=== PATIENT | male | born 1945 | race Caucasian/White ===

== ENCOUNTER → 2016-08-25 | Outpatient (CLI) | payer OTHER, MEDICARE | LOC: BHFA 15:00 | PROVIDERS: ATTEND Internal Medicine Cardiovascular Disease | DX: I48.91 Unspecified atrial fibrillation (principal) ==

== ENCOUNTER 2016-10-04 06:30 | Day surgery (SDC) | payer OTHER, MEDICARE ==
[2016-10-04] MEDS ORDERED: fentaNYL 100 MCG/2 ML INJ IVP ONE (06:37)
[2016-10-04] MEDS ORDERED: PROPOFOL 200 MG/20 ML VIAL IVP ONE (06:37)
[2016-10-04] MEDS ORDERED: BENZOCAINE UNIT DOSE SPRAY HURRICAINE MM ONE (06:37)
[2016-10-04] MEDS ORDERED: MIDAZOLAM 2 MG/2 ML VIAL IVP ONE (06:37)
[2016-10-04] MEDS ORDERED: NS 500 ML IV ONE (06:37)
--- NOTE | 2016-10-04 06:51 | CPEKG ---
Heart Rate: 79 RR Interval: 759 QRSD Interval: 84 QT Interval: 360 QTC Interval: 413 QRS [place]: -18 T Wave [place]: 1 EKG Severity - ABNORMAL ECG - EKG Impression: ATRIAL FIBRILLATION, V-RATE 65-97 EKG Impression: VENTRICULAR PREMATURE COMPLEX EKG Impression: BORDERLINE LEFT AXIS DEVIATION EKG Impression: ATRIAL FIB IS NEW IN COMPARISON TO PRIOR ECG Electronically Signed By: Manny Gonzalez 04-Oct-2016 06:58:42
[2016-10-04 07:23] LABS: INR 1.1 (0.83-1.16); PROTIME(PATIENT) 14.1 SEC (12.0-15.0)
[2016-10-04 07:24] LABS: APTT 37.1 SEC (23.0-38.0)
[2016-10-04] MEDS ORDERED: ATROPINE SULFATE 1 MG/10 ML SYR ONE (07:26)
[2016-10-04 07:31] LABS: ANION GAP 8 mEq/L (8-16); CARBON DIOXIDE 25 mEq/l (22-31); CHLORIDE 108 mEq/L (97-110); CREATININE 0.9 mg/dL (0.7-1.3); GLOMERULAR FILTRATION RATE > 60; GLUCOSE 112 mg/dL (70-100); MAGNESIUM 2.2 mg/dL (1.6-2.3); POTASSIUM 4.5 mEq/L (3.5-5.2); SODIUM 141 mEq/L (134-144)
[2016-10-04] MEDS ORDERED: PROPOFOL 200 MG/20 ML VIAL ONE (07:58)
--- NOTE | 2016-10-04 08:48 | CPEKG ---
Heart Rate: 46 RR Interval: 1304 P-R Interval: 224 QRSD Interval: 90 QT Interval: 440 QTC Interval: 385 P [place]: 54 QRS [place]: -16 T Wave [place]: -3 EKG Severity - ABNORMAL ECG - EKG Impression: SINUS BRADYCARDIA EKG Impression: BORDERLINE LEFT AXIS DEVIATION EKG Impression: BORDERLINE R WAVE PROGRESSION, ANTERIOR LEADS EKG Impression: BORDERLINE T ABNORMALITIES, INFERIOR LEADS EKG Impression: SINUS BRADYCARDIA HAS REPLACED ATRIAL FIBRILLATION Electronically Signed By: Manny Gonzalez 05-Oct-2016 09:07:01
--- NOTE | 2016-10-04 08:59 | PDTEE1 ---
LAMAR Cardioversion Procedure Procedure: Electrical Cardioversion, Transesophageal Echo Indications: Atrial Fibrillation Consent: Signed and in Chart Anticoagulation: Other (Pradaxa) Procedural Details: After consent was obtained, the patient was placed in the left lateral position , and local sedation was provided. Anesthesia with moderate sedation achieved. LAMAR probe was placed without difficulty and standard images were obtained. Patient was in atrial fibrillation with rates of 75-85 bpm Prelim report low normal LVEF (50%) with grossly normal wall motion. Moderate biatrial dilation was noted. Mild to moderate mitral regurgitation was noted. Trileaflet aortic valve with physiologic insufficiency. Grossly normal pulmonic valve. Trace/mild tricuspid regurgitation. No thrombus noted to the JEFF. No appreciable "smoke" was noted. Recommendations to proceed with cardioversion single, synchronized shock (200 J) with conversion from atrial fibrillation (75- 85 bpm) to normal sinus/sinus bradycardia (45-50 bpm). No complications Spoke with follow up in 1 week Synchronized cardioversion attempt #1: 200J Results: Normal sinus rhythm Conclusions: Successful LAMAR Cardioversion Conclusion Comment: Follow up with cardiology in one week. Patient Problems: Problems Problem Status Onset Arthritis of knee, left Acute
[2016-10-04 12:18] VITALS: BP 124/82; RESP 17; O2SAT 92
== END 2016-10-04 10:00 | disposition home or self-care (01) ==
LOC: FCATH 06:30
PROVIDERS: ATTEND Internal Medicine Cardiovascular Disease
PROC: 5A2204Z Restoration of Cardiac Rhythm, Single (ICD-10-PCS; principal; 2016-10-04)
PROC: B246ZZ4 Ultrasonography of Right and Left Heart, Transesophageal (ICD-10-PCS; principal; 2016-10-04)
DX: I48.91 Unspecified atrial fibrillation (principal); I10 Essential (primary) hypertension; I25.10 Atherosclerotic heart disease of native coronary artery without angina pectoris
CPT/HCPCS: J0461; J2704

== ENCOUNTER → 2016-10-11 | Outpatient (CLI) | payer OTHER, MEDICARE | LOC: BHCLAF 10:15 | PROVIDERS: ATTEND Internal Medicine Cardiovascular Disease | DX: I48.91 Unspecified atrial fibrillation (principal) | CPT/HCPCS: 93005-PO ==

== ENCOUNTER → 2016-10-18 | Outpatient (CLI) | payer OTHER, MEDICARE | LOC: BHCLAF 10:45 | PROVIDERS: ATTEND Internal Medicine Cardiovascular Disease | DX: I48.91 Unspecified atrial fibrillation (principal) | CPT/HCPCS: 93306-PO ==

== ENCOUNTER → 2016-11-05 | Outpatient (CLI) | payer OTHER, MEDICARE | LOC: BHFA 13:30 | PROVIDERS: ATTEND Internal Medicine Cardiovascular Disease | DX: I48.91 Unspecified atrial fibrillation (principal); I25.10 Atherosclerotic heart disease of native coronary artery without angina pectoris ==

== ENCOUNTER → 2017-07-01 | Outpatient (CLI) | payer OTHER, MEDICARE ==
[~2017-07-01] MED LIST: DEPO METHYLPREDNISOLONE 40 MG/ML SDV ONE; IOPAMIDOL (ISOVUE 370) 100 ML BTL IV ONE; LIDOCAINE 1% 300 MG/30 ML SDV ONE; ROPIVACAINE HCL 150 MG/30 ML INJ ONE
== END ==
LOC: FIMAGING 10:22
PROVIDERS: ATTEND Orthopaedic Surgery
PROC: 3E0U33Z Introduction of Anti-inflammatory into Joints, Percutaneous Approach (ICD-10-PCS; principal; 2017-07-01)
DX: M25.551 Pain in right hip (principal); Z96.641 Presence of right artificial hip joint
CPT/HCPCS: 20610; J1030; J2795; Q9967

== ENCOUNTER 2017-09-30 10:11 | Day surgery (SDC) | payer OTHER, MEDICARE ==
[2017-09-30] MEDS ORDERED: BENZOCAINE UNIT DOSE SPRAY HURRICAINE MM ONE (10:15)
[2017-09-30] MEDS ORDERED: NS 500 ML IV ONE (10:15)
[2017-09-30] MEDS ORDERED: fentaNYL 100 MCG/2 ML INJ IVP ONE (10:15)
[2017-09-30] MEDS ORDERED: MIDAZOLAM 2 MG/2 ML VIAL IVP ONE (10:15)
[2017-09-30] MEDS ORDERED: ATROPINE SULFATE 1 MG/10 ML SYR IVP ONE (10:15)
--- NOTE | 2017-09-30 10:30 | CPEKG ---
Heart Rate: 106 RR Interval: 566 QRSD Interval: 84 QT Interval: 332 QTC Interval: 441 QRS [place]: -10 T Wave [place]: 35 EKG Severity - ABNORMAL ECG - EKG Impression: ATRIAL FIBRILLATION, V-RATE 61-143 EKG Impression: LOW VOLTAGE THROUGHOUT Electronically Signed By: Joaquín Parmar 30-Sep-2017 14:14:56
[2017-09-30 10:55] LABS: INR 1.12 (0.83-1.16); PROTIME(PATIENT) 14.6 SEC (12.0-15.0)
--- NOTE | 2017-09-30 11:11 | PDANEPAE ---
ANE History of Present Illness a fib ANE Past Medical History - Cardiovascular History Hx Hypertension: No Hx Arrhythmias: Yes Hx Coronary Artery / Peripheral Vascular Disease: No Hx CHF / Valvular Disease: No Cardiovascular History Comment: ATRIAL FIBRILLATION 2010. CARDIOVERSION X 2 - Pulmonary History Hx COPD: No Hx Asthma/Reactive Airway Disease: Yes Hx Recent Upper Respiratory Infection: No Hx Oxygen in Use at Home: No Hx Sleep Apnea: Yes Pulmonary History Comment: URI JUNE 2013 - Neurologic History Hx Cerebrovascular Accident: No Hx Seizures: No Hx Dementia: No - Endocrine History Hx Diabetes: No - Renal History Hx Renal Disorders: Yes Renal History Comment: BPH. 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 ESOPHAGEAL DILATION 2008 - Other Health History Other Health History: ARTHRITIS. SEASONAL ALLERGIES. GLAUCOMA - Chronic Pain History Chronic Pain: Yes (RIGHT HIP) - Surgical History Prior Surgeries: LOOP MONITOR PLACEMENT NOVEMBER 2015. ANGIOPLASTY, CARDIOVERSION & SVT ABLATION 2014. LEFT TOTAL KNEE 2013. RT TOTAL KNEE 2006. LANA REMVL CATARACT. TURP 1994. RT EYE STRABISMUS. TONSILLECTOMY. RT KNEE SCOPE X 2. LT KNEE SCOPE. LANA HEEL RELEASE OF FASCIA ANE Review of Systems Review of Systems: ANE Patient History - Allergies Allergies/Adverse Reactions: No Known Allergies Allergy (Unverified 10/18/13 10:41) - Home Medications Home Medications: Doxazosin Mesylate [Cardura 4 MG (*)] 4 mg PO HS 10/18/13 [Last Taken 09/29/17 23:30] Pantoprazole Sodium [Protonix 40mg (*)] 40 mg PO BID 10/18/13 [Last Taken 10:00] Primidone [Primidone 250mg (*)] 250 mg PO HS 10/18/13 [Last Taken 09/29/17 23:30 ] Solifenacin Succinate [Vesicare 5 MG (*)] 5 mg PO HS 10/18/13 [Last Taken 23:30] Dabigatran Etexilate Mesyl [Pradaxa 150 MG (*)] 150 mg PO BID 08/07/14 [Last Taken 09/30/17 08:00] Brimonidine/Timolol [Combigan (*)] 1 drops EACHEYE BID 04/29/16 [Last Taken 12/12 08:00] Cholecalciferol Vit D3 [Vitamin D3 (*)] 1,000 units PO DAILY 04/29/16 [Last Taken 09/29/17 10:00] Cyanocobalamin [Vitamin B12 (*)] 1,000 mcg PO DAILY 04/29/16 [Last Taken 10:00] Glucosamine/Chondroitin [Glucosamine/Chondroitin (*)] 2 each PO DAILY 04/29/16 [ Last Taken 09/29/17 10:00] Herbals/Supplements -Info Only 1 ea PO DAILY 04/29/16 [Last Taken 09/29/17 10:00 ] Multivitamins [Multivitamin (*)] 1 each PO DAILY 04/29/16 [Last Taken 09/29/17 10:00] [place]-3 Fatty Acids [Fish Oil 1000 mg (*)] 1,000 mg PO DAILY 04/29/16 [Last Taken 09/29/17 10:00] Primidone [Mysoline] 50 mg PO HS 04/29/16 [Last Taken 09/29/17 10:00] Aspirin 81 mg PO DAILY 10/04/16 [Last Taken 09/29/17 10:00] CO Q-10 1 tab PO DAILY 10/04/16 [Last Taken 09/29/17 10:00] Calcium 500 mg PO DAILY 10/04/16 [Last Taken 09/29/17 10:00] Lutein 1 tab PO HS 10/04/16 [Last Taken 09/29/17 10:00] Tylenol PM (*) 2 mg PO HS PRN 10/04/16 [Last Taken 09/29/17 23:30] - Smoking Hx Smoking Status: Never smoked ANE Labs/Vital Signs - Labs Result Diagrams: 09/30/17 10:40 - Vital Signs Height: 183 cm Weight: 106.6 kg ANE Physical Exam - Airway Neck exam: FROM Mallampati Score: Class 2 Mouth exam: normal dental/mouth exam - Pulmonary Pulmonary: no respiratory distress - Cardiovascular Cardiovascular: other - ASA Status ASA Status: III ANE Anesthesia Plan Total IV Anesthesia: Yes
[2017-09-30] MEDS ORDERED: PROPOFOL 200 MG/20 ML VIAL ONE (11:27)
--- NOTE | 2017-09-30 11:30 | PDGENHP ---
History & Physical Chief Complaint: AF History of Present Illness: Patient with PAF and hx ablation in 2013. Has had 2 DCCV since ablation. One week of presyncope and palpitations. LINQ interrogation confirmed AF. He reports compliance with Pradaxa for 5 years with no missed doses in the past 4 weeks. Pertinent Past, Social, Family History: Reviewed Relevant Physical Exam: irreg irreg. No murmurs. No S3 or rub. Lungs CTAB. No edema Cardiorespiratory Assessment: stable
--- NOTE | 2017-09-30 11:38 | PDTEE1 ---
LAMAR Cardioversion Procedure Procedure: electrical cardioversion Indications: atrial fibrillation Anticoagulation: other (Pradaxa ) Procedural Details: Sedation was provided by Dr. Betts. Pads were placed in anterior-posterior position. No LAMAR probe was performed as the patient has been on uninterrupted Pradaxa therapy for years. Synchronized cardioversion attempt #1: 200J Results: normal sinus rhythm Conclusions: successful cardioversion Patient Problems: Problems Problem Status Onset Arthritis of knee, left Acute
--- NOTE | 2017-09-30 11:42 | POSTANESTH ---
Post Anesthetic Evaluation Cardiovascular Status: Normal, Stable Respiratory Status: Normal, Stable Level of Consciousness/Mental Status: Can Participate in Eval Pain Control: Adequate, Prn Tx Ordered Nausea/Vomiting Control: Adequate, Prn Tx Ordered Complications Possibly Related to Anesthesia: None Noted
--- NOTE | 2017-09-30 11:43 | CPEKG ---
Heart Rate: 56 RR Interval: 1071 P-R Interval: 204 QRSD Interval: 84 QT Interval: 396 QTC Interval: 383 P [place]: 45 QRS [place]: -24 T Wave [place]: 6 EKG Severity - OTHERWISE NORMAL ECG - EKG Impression: SINUS RHYTHM EKG Impression: BORDERLINE LEFT AXIS DEVIATION Electronically Signed By: Joaquín Parmar 30-Sep-2017 14:15:07
== END 2017-09-30 13:07 | disposition home or self-care (01) ==
LOC: FCATH 10:11
PROVIDERS: ATTEND Internal Medicine Cardiovascular Disease
PROC: 5A2204Z Restoration of Cardiac Rhythm, Single (ICD-10-PCS; principal; 2017-09-30)
DX: I48.91 Unspecified atrial fibrillation (principal); N40.0 Benign prostatic hyperplasia without lower urinary tract symptoms; G25.0 Essential tremor; K21.9 Gastro-esophageal reflux disease without esophagitis; H40.9 Unspecified glaucoma; Z79.01 Long term (current) use of anticoagulants; Z96.653 Presence of artificial knee joint, bilateral
CPT/HCPCS: J2704

== ENCOUNTER → 2017-10-17 | Outpatient (CLI) | payer OTHER, MEDICARE ==
[~2017-10-17] MED LIST changes: -DEPO METHYLPREDNISOLONE 40 MG/ML SDV ONE; -IOPAMIDOL (ISOVUE 370) 100 ML BTL IV ONE; -ROPIVACAINE HCL 150 MG/30 ML INJ ONE
== END ==
LOC: FIMAGING 08:14
PROVIDERS: ATTEND Orthopaedic Surgery
PROC: 0K9N3ZZ Drainage of Right Hip Muscle, Percutaneous Approach (ICD-10-PCS; principal; 2017-10-17)
DX: M67.451 Ganglion, right hip (principal)

== ENCOUNTER → 2018-02-10 | Outpatient (CLI) | payer OTHER, MEDICARE ==
[~2018-02-10] MED LIST changes: +IOPAMIDOL (ISOVUE 370) 100 ML BTL IV ONE
== END ==
LOC: FIMAGING 10:15
PROVIDERS: ATTEND Physical Medicine & Rehabilitation
PROC: 3E0U3BZ Introduction of Anesthetic Agent into Joints, Percutaneous Approach (ICD-10-PCS; principal; 2018-02-10)
DX: Z09 Encounter for follow-up examination after completed treatment for conditions other than malignant neoplasm (principal); Z96.649 Presence of unspecified artificial hip joint; M24.551 Contracture, right hip
CPT/HCPCS: 20610; 73525; 73700; Q9967

== ENCOUNTER 2018-04-04 07:47 | Inpatient (IN) | payer OTHER, MEDICARE ==
--- NOTE | 2018-04-04 05:26 | GHP ---
CURRENT COMPLAINT: Right hip pain. HISTORY OF PRESENT ILLNESS: Mr. Ortiz is a 72-year-old male, who has previously undergone a right t otal hip arthroplasty, who developed an anterior ganglion cyst associated with the capsule of the hip that is irritating his iliopsoas. He would like it removed. ALLERGIES: He lists no drug allergies. CURRENT MEDICATIONS: Include atorvastatin, doxazosin, Enablex, flecainide, nitrofurantoin, pantopraz ole, Pradaxa, Prevnar, Primidone, timolol. PRIOR MEDICAL PROBLEMS: Include high cholesterol and reflux. PRIOR SURGERIES: Include a total hip arthroplasty, total knee arthroplasty x2, cataracts, TURP, tong ue surgery, bilateral knee scopes, and a left heel release. SOCIAL HISTORY: He has never been a smoker. He is a social drinker. PHYSICAL EXAMINATION: EYES: Pupils equal, round, and reactive to light. CHEST: Clear to auscultat ion. HEART: Regular rate and rhythm. ABDOMEN: Soft and nontender. There is tenderness on the ant erior to flexion and adduction across the midline. MRI exams revealed a cyst coming off the anterior portion of the capsule just beneath his iliopsoas. He would like this removed. ASSESSMENT AND PLAN: Patient is status post right hip ganglion cyst. Plan is to take him to the ope rating room, do an open cyst excision with capsular excision. /[id number]/MODL
[2018-04-04] MEDS ORDERED: TRANEXAMIC ACID 3,000 MG in NS (SYRINGE) 50 ML IRR ONE (07:57)
[2018-04-04] MEDS ORDERED: ROPIVACAINE 0.2% 80 MG, EPINEPHrine 0.2 MG, KETOROLAC TROMETHAMINE 30 MG, morphINE 10 M... IU ONE (07:57)
[2018-04-04] MEDS ORDERED: PREGABALIN 150 MG CAP PO ONE (07:57)
[2018-04-04] MEDS ORDERED: ACETAMINOPHEN 500 MG TAB PO ONE (07:57)
[2018-04-04] MEDS ORDERED: ceFAZolin 2 GM/DEXTROSE 100 ML IV ONE (07:57)
[2018-04-04] MEDS ORDERED: LR 1,000 ML IV ONE (07:58)
[2018-04-04] MEDS ORDERED: POLYMYXIN B SULFATE 500,000 UNIT/10 ML SYR IRR ONE ×2 (08:00→08:09)
[2018-04-04] MEDS ORDERED: BUPIVACAINE/EPI 0.5% 30 ML SDV ONE ×2 (08:00→08:09)
[2018-04-04] MEDS ORDERED: THROMBIN (BOVINE) 5,000 UNIT VIAL TP ONE (08:00)
[2018-04-04] MEDS ORDERED: CALCIUM CHLORIDE 1 GM/10 ML INJ ONE (08:00)
[2018-04-04] MEDS ORDERED: BACITRACIN 50,000 UNITS/10 ML SYR IRR ONE ×2 (08:00→08:08)
--- NOTE | 2018-04-04 09:10 | PDHPUP ---
History & Physical Update H&P update statement: This history and physical update is based on an assessment of the patient which was completed after admission or registration (within 24 hours), but prior to the surgery/procedure. H&P update: H&P reviewed & patient examined, no change in patient's condition since H&P completed
[2018-04-04] MEDS ORDERED: PROPOFOL/EMULSION 500 MG/50 ML BOTTLE IV ONE (09:45)
[2018-04-04] MEDS ORDERED: fentaNYL 100 MCG/2 ML INJ ONE (09:45)
[2018-04-04] MEDS ORDERED: fentaNYL 100 MCG/2 ML INJ IVP PRN (10:13)
[2018-04-04] MEDS ORDERED: NALOXONE HCL 0.4 MG/ML INJ IVP PRN (10:13)
[2018-04-04] MEDS ORDERED: LR 500 ML IV PRN (10:13)
[2018-04-04] MEDS ORDERED: ONDANSETRON 4 MG/2 ML VIAL IVP PRN ×2 (10:13→11:17)
[2018-04-04] MEDS ORDERED: DEXAMETHASONE 4 MG/ML VIAL IVP PRN (10:13)
[2018-04-04] MEDS ORDERED: ALBUTEROL 3 ML DEYVIAL IH PRN (10:13)
--- NOTE | 2018-04-04 10:13 | PDANEPAE ---
ANE Past Medical History - Cardiovascular History Hx Hypertension: No Hx Arrhythmias: Yes Hx Coronary Artery / Peripheral Vascular Disease: Yes Hx CHF / Valvular Disease: No Cardiovascular History Comment: ATRIAL FIBRILLATION 2011. CARDIOVERSION X 2 - 2017. PT HAS LINQ RECORDER IMPLANTED - Pulmonary History Hx COPD: No Hx Asthma/Reactive Airway Disease: No Hx Recent Upper Respiratory Infection: No Hx Oxygen in Use at Home: No Hx Sleep Apnea: No Sleep Apnea Screening Result - Last Documented: Positive Pulmonary History Comment: URI JUNE 2013 - Neurologic History Hx Cerebrovascular Accident: No Hx Seizures: No Hx Dementia: No - Endocrine History Hx Diabetes: No - Renal History Hx Renal Disorders: Yes Renal History Comment: BPH. 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 ESOPHAGEAL DILATION 2008 - Other Health History Other Health History: ARTHRITIS. SEASONAL ALLERGIES. GLAUCOMA - Chronic Pain History Chronic Pain: Yes (RIGHT HIP) - Surgical History Prior Surgeries: 11/2017 CARDIOVERSION. 09/2017 CARDIOVERSION. LOOP MONITOR PLACEMENT NOVEMBER 2015. ANGIOPLASTY, CARDIOVERSION & SVT ABLATION 2014. LEFT TOTAL KNEE 2013. RT TOTAL KNEE 2006. LANA REMVL CATARACT. TURP 1994. RT EYE STRABISMUS. TONSILLECTOMY. RT KNEE SCOPE X 2. LT KNEE SCOPE. LANA HEEL RELEASE OF FASCIA ANE Review of Systems Review of Systems: - Exercise capacity METS (RN): 4 METS ANE Patient History - Allergies Allergies/Adverse Reactions: No Known Allergies Allergy (Unverified 10/18/13 10:41) - Home Medications Home Medications: Doxazosin Mesylate [Cardura 4 MG (*)] 4 mg PO HS 10/18/13 [Last Taken 04/03/18] Pantoprazole Sodium [Protonix 40mg (*)] 40 mg PO DAILY 10/18/13 [Last Taken 03/14 06:00] Primidone [Primidone 250mg (*)] 300 mg PO HS 10/18/13 [Last Taken 04/03/18] Solifenacin Succinate [Vesicare 5 MG (*)] 5 mg PO HS 10/18/13 [Last Taken ] Dabigatran Etexilate Mesyl [Pradaxa 150 MG (*)] 150 mg PO BID 08/07/14 [Last Taken 04/04/18] Brimonidine/Timolol [Combigan (*)] 1 drops EACHEYE BID 04/29/16 [Last Taken 03/14 06:00] Cyanocobalamin [Vitamin B12 (*)] 1,000 mcg PO DAILY 04/29/16 [Last Taken ] Multivitamins [Multivitamin (*)] 1 each PO DAILY 04/29/16 [Last Taken 04/03/18] Aspirin [Aspirin 81mg (*)] 81 mg PO DAILY #0 10/04/16 [Last Taken 04/03/18] Calcium Carbonate [Oyster Shell Calcium 500 mg (*)] 500 mg PO DAILY #0 10/04/16 [Last Taken 04/03/18] Atorvastatin Calcium [Lipitor 40 mg (*)] 40 mg PO HS 04/03/18 [Last Taken ] - NPO status NPO Since - Liquids (Date): 03/21/18 NPO Since - Liquids (Time): 19:30 NPO Since - Solids (Date): 04/03/18 NPO Since - Solids (Time): 19:30 - Smoking Hx Smoking Status: Never smoked ANE Labs/Vital Signs - Vital Signs Blood Pressure: 146/75 Heart Rate: 47 Respiratory Rate: 18 O2 Sat (%): 93 Height: 182.88 cm Weight: 107.955 kg ANE Physical Exam - Airway Neck exam: FROM Mallampati Score: Class 2 Mouth exam: normal dental/mouth exam - Pulmonary Pulmonary: no respiratory distress, no rales or rhonchi, clear to auscultation - Cardiovascular Cardiovascular: regular rate and rhythym, no murmur, rub, or gallop - ASA Status ASA Status: III ANE Anesthesia Plan Anesthesia Plan: general endotracheal anesthesia
[2018-04-04] MEDS ORDERED: ePHEDrine SULFATE 25 MG/5 ML SYR ONE (10:33)
[2018-04-04] MEDS ORDERED: ONDANSETRON 4 MG/2 ML VIAL ONE (10:33)
[2018-04-04] MEDS ORDERED: SUGAMMADEX SODIUM 200 MG/2 ML VIAL IVP ONE (10:33)
[2018-04-04] MEDS ORDERED: ROCURONIUM 50 MG/5 ML VIAL ONE (10:33)
--- NOTE | 2018-04-04 11:16 | POSTOPPROG ---
Post Op Note Date of Operation: 04/04/18 Surgeon: Peggy Burns Member Of Congress: coltrain Anesthesia: GET(General Endotracheal) Pre-op Diagnosis: r hip cyst Procedure: r hip cyst and capsule excision Inf/Abcess present in the surg proc area at time of surgery?: No Depth: Deep Incisional (Fascial) EBL: 100-500
[2018-04-04] MEDS ORDERED: BISACODYL 10 MG SUPP PR PRN (11:17)
[2018-04-04] MEDS ORDERED: PROMETHAZINE HCL 25 MG SUPPR PR PRN (11:17)
[2018-04-04] MEDS ORDERED: ONDANSETRON DISINTEGRATING 4 MG TAB PO PRN (11:17)
[2018-04-04] MEDS ORDERED: METOCLOPRAMIDE 10 MG/2 ML VIAL IVP PRN (11:17)
[2018-04-04] MEDS ORDERED: LACTULOSE 20 GM/30 ML UDCUP PO PRN (11:17)
[2018-04-04] MEDS ORDERED: TAPENTADOL HCL 50 MG TAB PO PRN (11:17)
[2018-04-04] MEDS ORDERED: TEMAZEPAM 15 MG CAP PO PRN (11:17)
[2018-04-04] MEDS ORDERED: POLYETHYLENE GLYCOL 3350 17 GM PKT PO PRN (11:17)
[2018-04-04] MEDS ORDERED: PROMETHAZINE HCL 25 MG/ML INJ IVP PRN (11:17)
[2018-04-04] MEDS ORDERED: DIPHENOXYLATE/ATROPINE LOMOTIL 1 TAB PO PRN (11:17)
[2018-04-04] MEDS ORDERED: MAGNESIUM HYDROXIDE 30 ML UDCUP PO PRN (11:17)
[2018-04-04] MEDS ORDERED: diphenhydrAMINE 25 MG CAP PO PRN (11:17)
[2018-04-04] MEDS ORDERED: oxyCODONE IR 5 MG TAB PO PRN (11:17)
[2018-04-04] MEDS ORDERED: CYCLOBENZAPRINE 10 MG TAB PO PRN (11:17)
[2018-04-04] MEDS ORDERED: LR 1,000 ML IV SCH (11:30)
--- NOTE | 2018-04-04 11:44 | POSTANESTH ---
Post Anesthetic Evaluation Cardiovascular Status: Normal, Stable, Similar to Pre-Op Cond Respiratory Status: Normal, Stable, Similar to Pre-op Cond. Level of Consciousness/Mental Status: Can Participate in Eval, Alert and Oriented Pain Control: Adequate, Prn Tx Ordered Nausea/Vomiting Control: Adequate, Prn Tx Ordered Complications Possibly Related to Anesthesia: None Noted
--- NOTE | 2018-04-04 12:34 | PDMN ---
Medical Necessity Medical necessity: [facility] IP only surgery; cpt 94780 R Hip Cyst Excision.
--- NOTE | 2018-04-04 12:53 | GOP ---
DATE OF OPERATION: 04/04/2018 SURGEON: Peggy Burns MD RECREATION WORKER: SALENA Castillo LSA, whose presence was medically necessary. ANESTHESIA: Endotracheal intubation. PREOPERATIVE DIAGNOSIS: Right anterior hip cyst. POSTOPERATIVE DIAGNOSIS: Right anterior hip cyst. PROCEDURE PERFORMED: Right hip cyst anterior capsular excision. FINDINGS: INDICATIONS: This is a 72-year-old male, who had previously undergone a right total hip arthroplasty several months ago. He had developed pain along the iliopsoas. Radiographic studies revealed a cys t on the anterior portion of the hip, rubbing up against the deep portion of the iliopsoas. He wishe s to have surgery in order to resolve the problem. DESCRIPTION OF PROCEDURE: The patient was brought to the operating room after the right side had bee n identified as the correct side by the patient, nurse, and physician. Once in the operating room, yuri lam was placed under general anesthesia using endotracheal intubation. Once asleep, he was placed on a traction table with both legs placed in appropriate leg holders and the arch table locked into place . The right hip and flank were sterilely prepped and draped in the usual fashion using so lution. Once prepped and draped, a sharp incision was made through the old scar for his total hip re placement. Sharp dissection was carried down through the skin and subcutaneous layers, with bleeding controlled using electrocautery. The fascia overlying the TFL was incised in line with its fibers, with the muscle belly retracted laterally. Deeper dissection was carried down onto the hip capsule. Dissection was carried out medially. A retractor was able to be placed in the area of the cyst, but , as soon as the retractor was placed, the cyst burst revealing synovial fluid coming from the area a round the cyst. Therefore, Bovie was used to remove the anterior portion of the capsule around the a jr of the cyst and extending to the intertrochanteric line in order to leave a wide opening area, in order to decrease the chance of any more cyst formation. There was noted to be some bony spur forma tion on the anterior portion of the hip, which was also debrided, in case this may have been causing any problems at all. The wound was then thoroughly irrigated with antibiotic solution. A joint cock tail was injected around the posterior capsule, and the periosteum around the femur and acetabulum, a nd tranexamic acid was irrigated through the wound. The wound was then closed in layers to include # 2 PDO suture for the TFL fascia, 0 Vicryl and 2-0 Vicryl sutures for the subcutaneous layers, and 3-0 V-Loc suture in a running subcuticular stitch for the skin. The wound was then dressed with Steri-S trips, Xeroform, 4 x 4, and Tegaderm. The patient was then completely undraped in the operating room and had both legs taken out of their leg holders. Perineal post was removed. He was woken up, extu bated, transferred onto a bed, and sent to the recovery room in good condition. /[id number]/MODL
[2018-04-04] MEDS: KETOROLAC 15 MG/1 ML SDV IVP SCH ×3 (14:12→23:16)
[2018-04-04] MEDS: ACETAMINOPHEN 325 MG TAB PO SCH ×3 (14:12→23:16)
[2018-04-04] MEDS: traMADol 50 MG TAB PO SCH ×3 (14:13→23:16)
[2018-04-04] MEDS: ceFAZolin 2 GM/DEXTROSE 100 ML IV SCH ×2 (16:46→23:17)
[2018-04-04] MEDS: SENNOSIDES/DOCUSATE SODIUM TAB PO SCH (20:02)
[2018-04-04] MEDS: DABIGATRAN ETEXILATE MESYL 150 MG CAP PO SCH (20:02)
[2018-04-04] MEDS: FAMOTIDINE 20 MG TAB PO SCH (20:02)
[2018-04-04] MEDS: BRIMONIDINE/TIMOLOL 5 ML OPHT.BTL EACHEYE SCH (20:02)
[2018-04-04] MEDS ORDERED: DOXAZOSIN MESYLATE 4 MG TAB PO SCH (21:00)
[2018-04-04] MEDS ORDERED: SOLIFENACIN SUCCINATE 5 MG TAB PO SCH (21:00)
[2018-04-04] MEDS ORDERED: PRIMIDONE 250 MG TAB PO SCH (21:00)
[2018-04-04] MEDS ORDERED: PRIMIDONE 50 MG TAB PO SCH (21:00)
[2018-04-04] MEDS ORDERED: ATORVASTATIN CALCIUM 40 MG TAB PO SCH (21:00)
[2018-04-05] MEDS: traMADol 50 MG TAB PO SCH ×2 (05:44→12:30)
[2018-04-05] MEDS: KETOROLAC 15 MG/1 ML SDV IVP SCH (05:45)
[2018-04-05] MEDS: ACETAMINOPHEN 325 MG TAB PO SCH ×2 (05:45→12:30)
[2018-04-05] MEDS ORDERED: PANTOPRAZOLE SODIUM 40 MG TAB PO SCH (09:00)
[2018-04-05] MEDS: DABIGATRAN ETEXILATE MESYL 150 MG CAP PO SCH (09:18)
[2018-04-05] MEDS: SENNOSIDES/DOCUSATE SODIUM TAB PO SCH (09:18)
[2018-04-05] MEDS: FAMOTIDINE 20 MG TAB PO SCH (09:19)
[2018-04-05] MEDS: BRIMONIDINE/TIMOLOL 5 ML OPHT.BTL EACHEYE SCH (09:21)
[2018-04-05 12:51] VITALS: BP 115/84
--- NOTE | 2018-04-05 13:47 | SOAPPROG ---
SOAP Progress Note Assessment/Plan: Assessment: Anderson is POD#1 s/p right hip cyst decompression. He reports he is doing well. PE: Dressing is clean and dry [place] Intact RLE Calf is soft to compression without pain Plan: Discharge home today Oxycodone for pain Follow up in 10-14 days for repeat evaluation and wound check 04/05/18 13:45 Objective: Vital Signs Temp Pulse Resp BP Pulse Ox 36.7 C 55 L 16 115/84 H 92 04/05/18 12:50 04/05/18 12:50 04/05/18 12:50 04/05/18 12:50 04/05/18 12:50 Laboratory Results 04/05/18 04:17 04/04/18 04/05/18 04/06/18 05:59 05:59 05:59 Intake Total 1950 Output Total 300 Balance 1650 ICD10 Worksheet Patient Problems: Problems Problem Status Onset Arthritis of knee, left Acute
--- NOTE | 2018-04-05 14:22 | ASMTLACE ---
[place] Length of stay for Answers: 2 days current admission Acuity / Level of Answers: Yes Care: Did the patient have an inpatient admission? Comorbidities - select Answers: Coronary Artery Disease all that apply Opioid dependence / Chronic pain Other Notes: AFib; BPH; Essential tremor # of Emergency department Answers: 0 visits in the last 6 months Score: 12 Date Signed: 04/05/2018 02:22 PM Electronically Signed By:RONDA Singleton
--- NOTE | 2018-04-05 14:23 | ASMTCMCOM ---
CM Note CM Note Notes: Pt had planned surgery for ganglion cyst on hip, PT rec home. No CM d/c needs identified. Date Signed: 04/05/2018 02:22 PM Electronically Signed By:RONDA Singleton
== END 2018-04-05 14:11 | disposition home or self-care (01) | DRG 482 ==
LOC: F3N 07:47 → OBSVTOIN 11:19 → F3N 13:02
PROVIDERS: ADMIT Orthopaedic Surgery; ATTEND Orthopaedic Surgery
PROC: 0SB90ZZ Excision of Right Hip Joint, Open Approach (ICD-10-PCS; principal; 2018-04-04 09:30)
DX: M67.451 Ganglion, right hip (principal); Z96.641 Presence of right artificial hip joint; Z96.653 Presence of artificial knee joint, bilateral
CPT/HCPCS: 97161-GP; 97165-GO; G8978-GP-CI; G8979-GP-CI; G8980-GP-CI; G8987-GO-CI; G8988-GO-CI; G8989-GO-CI; J0171; J0690; J1885; J2270; J2405; J2704; J2795; J3010

== ENCOUNTER 2018-04-19 20:03 | Emergency (ER) | payer OTHER, MEDICARE ==
--- NOTE | 2018-04-19 20:19 | EDPHY ---
H & P Time Seen by Provider: 04/19/18 20:09 HPI/ROS: Chief complaint. Possible hip dislocation HPI. 72-year-old male presents to emergency department with right hip pain. Patient arrives by EM S. He received pain medication in route. Had a hip replacement 2 years ago. He has never had it dislocate. 2 weeks ago he had a ganglion cyst in the hip with surgery to remove bone spur and ganglion cyst. He review of the records show that the patient progressed quite well. He has been doing his exercises. Today he was also out raking leaves. Tonight he was sitting on the couch with his watching television and suddenly had right hip pain. While sitting and at rest he has no pain. When he tries to stand on it he says the pain is 10/10. There was no twist or fall but just sudden onset of right hip pain. He had tingling to his right foot. ROS 10 systems were reviewed and negative with the exception of the elements mentioned in the history of present illness Past Medical/Surgical History: Atrial fibrillation, dyslipidemia, GERD, BPH, right hip replacement Social History: , nonsmoker, no alcohol Smoking Status: Never smoked Physical Exam: General Appearance: Alert well-developed male mild distress vitals are stable Eyes: Pupils equal and round no pallor or injection. ENT, Mouth: Mucous membranes are moist. Respiratory: There are no retractions, lungs are clear to auscultation. Cardiovascular: Regular rate and rhythm. Gastrointestinal: Abdomen is soft and nontender, no masses, bowel sounds normal. Neurological: Awake and alert, sensory and motor exams grossly normal. Skin: Warm and dry, no rashes. Musculoskeletal: Neck is supple nontender. Extremities mild tenderness to palpation right hip. No obvious deformity. Distal motor vascular sensitivity intact. However painful flexion extension and AB duction. Psychiatric: Patient is oriented X 3, there is no agitation. Constitutional: Initial Vital Signs Temperature (C) 36.7 C 04/19/18 20:05 Heart Rate 63 04/19/18 20:05 Respiratory Rate 20 04/19/18 20:05 Blood Pressure 175/76 H 04/19/18 20:05 O2 Sat (%) 95 04/19/18 20:05 O2 Delivery Mode [Post Room Air Procedure 3rd] O2 Delivery Mode [Post Non-Rebreather Mask Procedure 2nd] O2 Delivery Mode [Procedural Non-Rebreather Mask 1st Post Procedure 1st] O2 Delivery Mode [.Immediate Non-Rebreather Mask Pre-Procedure] O2 Delivery Mode Room Air O2 (L/minute) [Post Procedure 12 2nd] O2 (L/minute) [Procedural 1st 12 Post Procedure 1st] O2 (L/minute) [.Immediate Pre- 12 Procedure] Allergies/Adverse Reactions: No Known Allergies Allergy (Unverified 04/19/18 20:19) Home Medications: Medication Instructions Recorded Doxazosin Mesylate [Cardura 4 MG 4 mg PO HS 10/18/13 (*)] Pantoprazole Sodium [Protonix 40mg 40 mg PO DAILY 10/18/13 (*)] Primidone [Primidone 250mg (*)] 300 mg PO HS 10/18/13 Solifenacin Succinate [Vesicare 5 5 mg PO HS 10/18/13 MG (*)] Dabigatran Etexilate Mesyl 150 mg PO BID 08/07/14 [Pradaxa 150 MG (*)] Brimonidine/Timolol [Combigan (*)] 1 drops EACHEYE BID 04/29/16 Cyanocobalamin [Vitamin B12 (*)] 1,000 mcg PO DAILY 04/29/16 Multivitamins [Multivitamin (*)] 1 each PO DAILY 04/29/16 Aspirin [Aspirin 81mg (*)] 81 mg PO DAILY #0 10/04/16 Calcium Carbonate [Oyster Shell 500 mg PO DAILY #0 10/04/16 Calcium 500 mg (*)] Atorvastatin Calcium [Lipitor 40 40 mg PO HS 04/03/18 mg (*)] Acetaminophen [Tylenol 325mg (*)] 650 mg PO Q6HRS tab 04/05/18 Co Q-10 04/19/18 Glucosamine 04/19/18 Medical Decision Making - Diagnostics Imaging Results: Imaging Impressions Hip X-Ray 04/19/18 20:10 Impression: Dislocation of the femoral component of the total right hip arthroplasty. Hip X-Ray 04/19/18 20:52 Impression: Post reduction image shows anatomic alignment of the total right hip arthroplasty. X-ray reviewed by me shows dislocation of the right hip prosthesis Post reduction hip x-ray shows reduction is obtained Procedures: Procedure: Conscious sedation. Indication: Hip reduction I perform sedation and procedure The patient is an appropriate candidate to tolerate procedural sedation. The patient's vital signs and mental status are appropriate. The risks, benefits and alternatives of the sedation were discussed with the patient. The patient is ASA classification 1. The patient' s Mallampati airway score was 1 and the patient did meet the 3-3-2 airway measurements. A time out was completed. The patient was sedated with propofol 70 mg IV, fentanyl 100 mcg IV. The patient was monitored with continuous pulse oximetry, vehicle monitor technician and end tidal CO2. There were no complications and no significant hypoxemia. I performed both the sedation and the procedure. The total time I spent at the bedside during the procedural sedation was 20 minutes. The patient was examined after the procedural sedation and has returned to their pre-sedation baseline with normal vital signs and a normal examination. Procedure: ED hip dislocation. After adequate sedation the patient's was flexed and upper traction was placed on the hip with downward traction placed on the pelvis. An palpable pop was felt. I was then able to range of motion the hip and at moved with out restriction. Post reduction distal motor vascular sensitivity was checked and is intact ED Course/Re-evaluation: Re-evaluation 9:55 p.m. Patient is stable. He is ambulatory to the bathroom without pain or symptoms The patient, his , and I discussed treatment plan including criteria for return and hip replacement precautions. I have asked them to call Dr. Flowers tomorrow morning. They expressed understanding and agreement Differential Diagnosis: I considered hip fracture, sprain, dislocation. Patient had surgery 2 weeks ago but the wound appears to be healed and there is no evidence for infection - Data Points Medications Given: Discontinued Medications Fentanyl (Sublimaze) 100 mcg IVP EDNOW ONE Stop: 04/19/18 20:32 Last Admin: 04/19/18 20:45 Dose: 100 mcg Oxycodone/Acetaminophen (Percocet 5/325mg Prepack#4) 1 btl TAKEHOME EDNOW ONE Stop: 04/19/18 22:13 Last Admin: 04/19/18 22:21 Dose: 1 btl Propofol (Diprivan) 200 mg IVP EDNOW ONE Stop: 04/19/18 20:32 Last Admin: 04/19/18 20:49 Dose: 70 mg Departure - Departure Disposition: Home, Routine, Self-Care Clinical Impression: Hip dislocation, right Qualifiers: Encounter type: initial encounter Qualified Code(s): S73.004A - Unspecified dislocation of right hip, initial encounter Condition: Good Instructions: Hip Dislocation (ED) Additional Instructions: Easy activity. Sleep with pillow between legs. Return tonight for further symptoms Follow-up with Dr. Burns tomorrow Referrals: Jono Brewer MD [Primary Care Provider] - As per Instructions Peggy Burns MD [Medical Doctor] - 1-2 days without fail
[2018-04-19] MEDS ORDERED: PROPOFOL 200 MG/20 ML VIAL IVP ONE (20:31)
[2018-04-19] MEDS ORDERED: fentaNYL 100 MCG/2 ML INJ IVP ONE (20:31)
[2018-04-19] MEDS ORDERED: fentaNYL 100 MCG/2 ML INJ ONE (20:32)
[2018-04-19] MEDS ORDERED: PROPOFOL 200 MG/20 ML VIAL ONE (20:32)
[2018-04-19 22:05] VITALS: BP 158/82
[2018-04-19] MEDS ORDERED: OXYCODONE/APAP 5/325MG PREPACK#4 BTL TAKEHOME ONE ×2 (22:11→22:12)
== END 2018-04-19 22:23 | disposition home or self-care (01) ==
LOC: EDUNIT#
PROC: 0SS9XZZ Reposition Right Hip Joint, External Approach (ICD-10-PCS; principal; 2018-04-19)
DX: S73.004A Unspecified dislocation of right hip, initial encounter (principal); T84.020A Dislocation of internal right hip prosthesis, initial encounter; Y93.H1 Activity, digging, shoveling and raking; Y92.007 Garden or yard of unspecified non-institutional (private) residence as the place of occurrence of the external cause; Z96.641 Presence of right artificial hip joint
CPT/HCPCS: 27252; 73501; 73502; 96374; 96375; 99284; J2704; J3010

== ENCOUNTER 2018-05-05 22:45 | Emergency (ER) | payer OTHER, MEDICARE ==
[2018-05-05] MEDS ORDERED: DIAZEPAM 5 MG/ML 1 ML SYR IVP ONE (22:49)
[2018-05-05] MEDS ORDERED: fentaNYL 100 MCG/2 ML INJ IVP ONE (22:50)
--- NOTE | 2018-05-05 22:52 | EDPHY ---
H & P Time Seen by Provider: 05/05/18 22:46 HPI/ROS: CHIEF COMPLAINT: Right hip dislocation HISTORY OF PRESENT ILLNESS: The patient is a 72-year-old man who comes to the emergency department complaining of right hip pain and likely dislocation. He had a replaced [address] Peggy Burns. He also has a history of atrial fibrillation on Pradaxa. He states that it dislocated 2 weeks ago and he had to come here to have it reduced. He was sitting on the couch tonight when he stood up and his shoe caught on the rug and twisted his leg outward any felt it dislocate again. He states that tonight is not as bad as last time. He can wiggle his toes. He has good pulses. Ambulance was called and he was brought here to the ER. He declined pain medications in the ambulance. Severity: Moderate Modifying factors: None REVIEW OF SYSTEMS: Constitutional: denies: chills, fever, recent illness, recent injury EENTM: denies: blurred vision, double vision, nose congestion Respiratory: denies: cough, shortness of breath Cardiac: denies: chest pain, irregular heart rate, lightheadedness, palpitations Gastrointestinal/Abdominal: denies: abdominal pain, diarrhea, nausea, vomiting, blood streaked stools Genitourinary: denies: dysuria, frequency, hematuria, pain Musculoskeletal: See HPI Skin: denies: lesions, rash, jaundice, bruising Neurological: denies: headache, numbness, paresthesia, tingling, dizziness, weakness Hematologic/Lymphatic: denies: blood clots, easy bleeding, easy bruising Immunologic/allergic: denies: HIV/AIDS, transplant 10 systems reviewed and negative except as noted EXAM: GENERAL: Well-appearing, well-nourished and in no acute distress. HEAD: Atraumatic, normocephalic. EYES: Pupils equal round and reactive to light, extraocular movements intact, sclera anicteric, conjunctiva are normal. ENT: TMs normal, nares patent, oropharynx clear without exudates. Moist mucous membranes. NECK: Normal range of motion, supple without lymphadenopathy or JVD. LUNGS: Breath sounds clear to auscultation bilaterally and equal. No wheezes rales or rhonchi. HEART: Regular rate and rhythm without murmurs, rubs or gallops. ABDOMEN: Soft, nontender, normoactive bowel sounds. No guarding, no rebound. No masses appreciated. BACK: No CVA tenderness, no spinal tenderness, step-offs or deformities EXTREMITIES: Right leg rotated and shortened. Normal movement in foot and ankle. Normal pulses. NEUROLOGICAL: Cranial nerves II through XII grossly intact. Normal speech, normal gait. 5/5 strength, normal movement in all extremities, normal sensation , normal reflexes PSYCH: Normal mood, normal affect. SKIN: Warm, dry, normal turgor, no visible rashes or lesions. 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, glaucoma - Family History Significant Family History: No pertinent family hx - Social History Smoking Status: Never smoked Alcohol Use: Sober Drug Use: None Constitutional: Initial Vital Signs Temperature (C) 36.8 C 05/05/18 22:45 Heart Rate 79 05/05/18 22:45 Respiratory Rate 18 05/05/18 22:45 Blood Pressure 204/90 H 05/05/18 22:45 O2 Sat (%) 96 05/05/18 22:45 O2 Delivery Mode [Post Room Air Procedure 4th] O2 Delivery Mode [Post Room Air Procedure 3rd] O2 Delivery Mode [Post Nasal Cannula Procedure 2nd] O2 Delivery Mode [Post Non-Rebreather Mask Procedure 1st] O2 Delivery Mode Room Air O2 (L/minute) [Post Procedure 2 2nd] O2 (L/minute) [Post Procedure 10 1st] O2 (L/minute) 4 Allergies/Adverse Reactions: No Known Allergies Allergy (Unverified 04/19/18 20:19) Home Medications: Medication Instructions Recorded Doxazosin Mesylate [Cardura 4 MG 4 mg PO HS 10/18/13 (*)] Pantoprazole Sodium [Protonix 40mg 40 mg PO DAILY 10/18/13 (*)] Primidone [Primidone 250mg (*)] 300 mg PO HS 10/18/13 Solifenacin Succinate [Vesicare 5 5 mg PO HS 10/18/13 MG (*)] Dabigatran Etexilate Mesyl 150 mg PO BID 08/07/14 [Pradaxa 150 MG (*)] Brimonidine/Timolol [Combigan (*)] 1 drops EACHEYE BID 04/29/16 Cyanocobalamin [Vitamin B12 (*)] 1,000 mcg PO DAILY 04/29/16 Multivitamins [Multivitamin (*)] 1 each PO DAILY 04/29/16 Aspirin [Aspirin 81mg (*)] 81 mg PO DAILY #0 10/04/16 Calcium Carbonate [Oyster Shell 500 mg PO DAILY #0 10/04/16 Calcium 500 mg (*)] Atorvastatin Calcium [Lipitor 40 40 mg PO HS 04/03/18 mg (*)] Acetaminophen [Tylenol 325mg (*)] 650 mg PO Q6HRS tab 04/05/18 Co Q-10 04/19/18 Glucosamine 04/19/18 Medical Decision Making - Diagnostics Imaging: Discussed imaging studies w/ call person Radiologist ED Course/Re-evaluation: Procedure: Procedural sedation. Indication: Orthopedic reduction. A pre-sedation evaluation was completed on the patient just prior to the procedure. Patient is an appropriate candidate for procedural sedation with a normal 3-3-2 rule assessment and a Mallampati airway score of class 2. The risks of the sedation were discussed including but not limited to dysrhythmia, need for airway intervention or general anesthesia, disability, ; and verbal consent obtained. A timeout was observed and patient's identity confirmed. The patient was sedated with ketamine and propofol. The patient was monitored with continuous pulse oximetry, capnography, and quality assurance monitor body. There were no complications and no significant hypoxemia. I remained at the bedside for the sedation. The total time I spent in the procedural sedation was 16 minutes. Orthopedic reduction: The patient's right hip was reduced with traction and direct pressure. He tolerated the procedure well. He was sedated. Post reduction x-rays seen and in good alignment. Differential Diagnosis: Partial list of the Differential diagnosis considered include but were not limited to; hip dislocation, fracture and although unlikely based on the history and physical exam, I also considered infection, vascular injury, nerve injury. I discussed these differential diagnoses and the plan with the patient as well as the usual and expected course. The patient understands that the diagnosis is provisional and that in medicine we are not always correct and that further workup is often warranted. Usual and customary warnings were given. All of the patient's questions were answered. The patient was instructed to return to the emergency department should the symptoms at all worsen or return, otherwise to followup with the physician as we discussed. - Data Points Medications Given: Discontinued Medications Diazepam (Valium) 2.5 mg IVP EDNOW ONE Stop: 05/05/18 22:50 Last Admin: 05/05/18 23:07 Dose: 2.5 mg Fentanyl (Sublimaze) 50 mcg IVP EDNOW ONE Stop: 05/05/18 22:51 Last Admin: 05/05/18 23:05 Dose: 50 mcg Fentanyl (Sublimaze) 50 mcg IVP EDNOW ONE Stop: 05/06/18 00:20 Last Admin: 05/06/18 03:11 Dose: Not Given Ketamine HCl (Ketamine) 40 mg IVP EDNOW ONE Stop: 05/06/18 01:07 Last Admin: 05/06/18 02:25 Dose: 40 mg Ketorolac Tromethamine (Toradol) 30 mg IVP EDNOW ONE Stop: 05/06/18 02:24 Last Admin: 05/06/18 02:24 Dose: 30 mg Propofol (Diprivan) 20 mg IVP EDNOW ONE Stop: 05/06/18 01:05 Last Admin: 05/06/18 02:25 Dose: Not Given Departure - Departure Disposition: Home, Routine, Self-Care Clinical Impression: Dislocation of hip, right, closed Qualifiers: Encounter type: initial encounter Qualified Code(s): S73.004A - Unspecified dislocation of right hip, initial encounter Condition: Fair Instructions: Hip Dislocation (ED) Referrals: Jono Brewer MD [Primary Care Provider] - As per Instructions Peggy Burns MD [Medical Doctor] - As per Instructions
[2018-05-06] MEDS ORDERED: fentaNYL 100 MCG/2 ML INJ IVP ONE (00:19)
[2018-05-06] MEDS ORDERED: KETAMINE 200 MG/20 ML VIAL ONE (00:55)
[2018-05-06] MEDS ORDERED: PROPOFOL 200 MG/20 ML VIAL ONE (00:55)
[2018-05-06] MEDS ORDERED: PROPOFOL 200 MG/20 ML VIAL IVP ONE (01:04)
[2018-05-06] MEDS ORDERED: KETAMINE 500 MG/10 ML VIAL IVP ONE (01:06)
[2018-05-06 02:17] VITALS: BP 149/86
[2018-05-06] MEDS ORDERED: KETOROLAC 30 MG/1 ML SDV ONE (02:20)
[2018-05-06] MEDS ORDERED: KETOROLAC 30 MG/1 ML SDV IVP ONE (02:23)
[2018-05-10] MEDS ORDERED: PROPOFOL/EMULSION 500 MG/50 ML BOTTLE IV ONE (16:18)
[2018-05-10] MEDS ORDERED: fentaNYL 250 MCG/5 ML INJ ONE (16:18)
[2018-05-10] MEDS ORDERED: THROMBIN (BOVINE) 5,000 UNIT VIAL TP ONE (16:20)
[2018-05-10] MEDS ORDERED: BUPIVACAINE/EPI 0.5% 30 ML SDV ONE (16:20)
[2018-05-10] MEDS ORDERED: ROCURONIUM 100 MG/10 ML VIAL ONE (16:21)
[2018-05-10] MEDS ORDERED: CALCIUM CHLORIDE 1 GM/10 ML INJ ONE (16:21)
[2018-05-10] MEDS ORDERED: LIDOCAINE 2% 2 ML INJ ONE (16:21)
[2018-05-10] MEDS ORDERED: POLYMYXIN B SULFATE 500,000 UNIT/10 ML SYR IRR ONE (16:22)
[2018-05-10] MEDS ORDERED: BACITRACIN 50,000 UNITS/10 ML SYR IRR ONE (16:22)
[2018-05-10] MEDS ORDERED: MIDAZOLAM 2 MG/2 ML VIAL ONE (16:35)
[2018-05-10] MEDS ORDERED: CEFAZOLIN 2 GM/DEXTROSE/100 ML BAG IV ONE (16:44)
[2018-05-10] MEDS ORDERED: SUGAMMADEX SODIUM 200 MG/2 ML VIAL IVP ONE (18:32)
[2018-05-10] MEDS ORDERED: DEXAMETHASONE 4 MG/ML VIAL ONE (18:32)
[2018-05-10] MEDS ORDERED: ONDANSETRON 4 MG/2 ML VIAL ONE (18:32)
[2018-05-10] MEDS ORDERED: hydrALAZINE 20 MG/ML VIAL ONE (18:48)
[2018-05-10] MEDS ORDERED: fentaNYL 100 MCG/2 ML INJ ONE (19:05)
== END 2018-05-06 02:30 | disposition home or self-care (01) ==
LOC: EDUNIT#
PROC: 0SS9XZZ Reposition Right Hip Joint, External Approach (ICD-10-PCS; principal; 2018-05-05)
DX: S73.004A Unspecified dislocation of right hip, initial encounter (principal); X50.1XXA Overexertion from prolonged static or awkward postures, initial encounter; Y99.9 Unspecified external cause status; Z96.641 Presence of right artificial hip joint
CPT/HCPCS: 27250; 73502; 96374; 96375; 99152; 99285; J1885; J2704; J3010; J3360; J0360; J0690; J1100; J2250; J2405

== ENCOUNTER 2018-05-10 14:36 | Inpatient (IN) | payer OTHER, MEDICARE ==
--- NOTE | 2018-05-10 00:36 | GHP ---
DATE OF ADMISSION: 05/10/2018 CURRENT COMPLAINT: Right hip instability. HISTORY OF PRESENT ILLNESS: The patient is a 72-year-old male who had previously undergone a right t otal hip replacement in 2015. He had been doing well up until the last several months when he develo ped a ganglion on the anterior surface of his hip capsule. He had the ganglion excised along with so me of the capsule in order to prevent its recurrence. However, he had two episodes of hip dislocatio n since that time in March. It was decided to revise the portion of the total hip arthroplasty in order to increase his stability. ALLERGIES: He lists no drug allergies. MEDICATIONS: Current medications include atorvastatin, Combigan eyedrops, doxazosin, Enablex, flecai nide, nitrofurantoin, pantoprazole, Pradaxa, Prevnar, primidone, timolol eye gel, VESIcare, zolpidem. PAST MEDICAL HISTORY: Prior medical problems include arthritis, high cholesterol, and reflux. PAST SURGICAL HISTORY: Prior surgeries include a hip arthrotomy, total hip arthroplasty, total knee arthroplasty x2, cataracts, TURP, knee arthroscopies, heel release, and tongue surgery. SOCIAL HISTORY: He has never been a smoker. He is a social drinker. PHYSICAL EXAMINATION: Patient has no pain to passive range of motion through the hip with minor decr ease in strength to hip flexion, but otherwise 5/5 strength to hip extension, internal and external r otation. He has well placed hardware by x-ray with a minor decrease in leg lengths when compared to the opposite side when standing. ASSESSMENT AND PLAN: Patient is status post right hip instability. Plan [facility] right total hip revision. /[id number]/MODL
[2018-05-10] MEDS ORDERED: LR 1,000 ML IV ONE (14:47)
[2018-05-10] MEDS ORDERED: THROMBIN (BOVINE) 5,000 UNIT VIAL TP ONE (15:57)
[2018-05-10] MEDS ORDERED: CALCIUM CHLORIDE 1 GM/10 ML INJ ONE (15:57)
[2018-05-10] MEDS ORDERED: MIDAZOLAM 2 MG/2 ML VIAL IVP ONE (15:58)
--- NOTE | 2018-05-10 15:58 | PDANEPAE ---
ANE Past Medical History - Cardiovascular History Hx Hypertension: Yes Hx Arrhythmias: Yes Hx Chest Pain: No Hx Coronary Artery / Peripheral Vascular Disease: Yes Hx CHF / Valvular Disease: No Hx Palpitations: No Cardiovascular History Comment: afib. CAD. hyperlipidemia. hx of multiple cardioversions. loop recorder placed. hx of syncope. followed by [facility] - Pulmonary History Hx COPD: No Hx Asthma/Reactive Airway Disease: No Hx Recent Upper Respiratory Infection: No Hx Oxygen in Use at Home: No Hx Sleep Apnea: Yes Sleep Apnea Screening Result - Last Documented: Negative Pulmonary History Comment: stephanie positive - Neurologic History Hx Cerebrovascular Accident: No Hx Seizures: No Hx Dementia: No Neurologic History Comment: ESSENTIAL TREMOR - Endocrine History Hx Diabetes: No - Renal History Hx Renal Disorders: Yes Renal History Comment: BPH. 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 ESOPHAGEAL DILATION 2008 - Other Health History Other Health History: ARTHRITIS. SEASONAL ALLERGIES. GLAUCOMA. wears reading glasses. wears bilateral hearing aides- will not bring to hospital - Chronic Pain History Chronic Pain: Yes (right hip) - Surgical History Prior Surgeries: 04/28/18 urolift with Kimberly in office. 04/04/18 excision of cyst intracapusular hip joint with [facility]. cardioversion 02/03/18, 09/30/17, 04/12, 08/07/14, 07/17/14. 12/16/2015 LOOP MONITOR PLACEMENT. ANGIOPLASTY. right ANNABEL with. [facility]. 10/23/13 left TKA with [facility]. RT TOTAL KNEE 2006. LANA REMVL CATARACT. TURP 1994. RT EYE STRABISMUS. TONSILLECTOMY. RT KNEE SCOPE X 2. LT KNEE SCOPE. LANA HEEL RELEASE OF FASCIA ANE Review of Systems Review of Systems: - Exercise capacity METS (RN): 4 METS - Pacemaker Pacemaker Roller Bearing Inspector: Medtronic Pacemaker Model: Reveal Linq Date Pacemaker Last Checked: 03/08/18 ANE Patient History - Allergies Allergies/Adverse Reactions: No Known Allergies Allergy (Verified 05/09/18 16:34) - Home Medications Home Medications: Doxazosin Mesylate [Cardura 4 MG (*)] 4 mg PO HS 10/18/13 [Last Taken 05/09/18] Pantoprazole Sodium [Protonix 40mg (*)] 40 mg PO DAILY 10/18/13 [Last Taken 08:30] Primidone [Primidone 250mg (*)] 250 mg PO HS 10/18/13 [Last Taken 05/09/18] Solifenacin Succinate [Vesicare 5 MG (*)] 5 mg PO HS 10/18/13 [Last Taken ] Dabigatran Etexilate Mesyl [Pradaxa 150 MG (*)] 150 mg PO BID 08/07/14 [Last Taken 05/08/18] Brimonidine/Timolol [Combigan (*)] 1 drops EACHEYE BID 04/29/16 [Last Taken 08:30] Cyanocobalamin [Vitamin B12 (*)] 1,000 mcg PO DAILY 04/29/16 [Last Taken ] Multivitamins [Multivitamin (*)] 1 each PO DAILY 04/29/16 [Last Taken 05/09/18] Aspirin [Aspirin 81mg (*)] 81 mg PO DAILY #0 10/04/16 [Last Taken 05/08/18] Calcium Carbonate [Oyster Shell Calcium 500 mg (*)] 500 mg PO DAILY #0 10/04/16 [Last Taken 05/09/18] Atorvastatin Calcium [Lipitor 40 mg (*)] 40 mg PO HS 04/03/18 [Last Taken ] Glucosamine Sulfate [Glucosamine Sulfate 500 MG (*)] 500 mg PO DAILY 04/19/18 [ Last Taken 05/09/18] Herbals/Supplements -Info Only 1 ea PO DAILY 04/19/18 [Last Taken 05/09/18] Acetaminophen [Tylenol 325mg (*)] 650 mg PO Q6HRS PRN 05/09/18 [Last Taken 05/09] Primidone [Mysoline 50mg (RX)] 100 mg PO DAILY 05/09/18 [Last Taken 05/10/18 08: 30] - NPO status NPO Since - Liquids (Date): 05/10/18 NPO Since - Liquids (Time): 13:00 NPO Since - Solids (Date): 05/10/18 NPO Since - Solids (Time): 04:45 - Smoking Hx Smoking Status: Never smoked - Family Anes Hx Family Hx Anesthesia Complications: none ANE Labs/Vital Signs - Vital Signs Blood Pressure: 155/84 Heart Rate: 46 Respiratory Rate: 18 O2 Sat (%): 96 Height: 182.88 cm Weight: 107.955 kg ANE Physical Exam - Airway Neck exam: decreased ROM Mallampati Score: Class 2 Mouth exam: normal dental/mouth exam - Pulmonary Pulmonary: no respiratory distress - Cardiovascular Cardiovascular: irregularly irregular - ASA Status ASA Status: III ANE Anesthesia Plan Anesthesia Plan: general endotracheal anesthesia
[2018-05-10] MEDS ORDERED: ROPIVACAINE 0.2% 80 MG, EPINEPHrine 0.2 MG, KETOROLAC TROMETHAMINE 30 MG, morphINE 10 M... IU ONE (16:39)
[2018-05-10] MEDS ORDERED: ceFAZolin 2 GM/DEXTROSE 100 ML IV ONE (16:39)
[2018-05-10] MEDS ORDERED: TRANEXAMIC ACID 3,000 MG in NS (SYRINGE) 50 ML IRR ONE (16:39)
[2018-05-10] MEDS ORDERED: PROMETHAZINE HCL 25 MG SUPPR PR PRN (18:28)
[2018-05-10] MEDS ORDERED: diphenhydrAMINE 25 MG CAP PO PRN (18:28)
[2018-05-10] MEDS ORDERED: LACTULOSE 20 GM/30 ML UDCUP PO PRN (18:28)
[2018-05-10] MEDS ORDERED: oxyCODONE IR 5 MG TAB PO PRN (18:28)
[2018-05-10] MEDS ORDERED: TEMAZEPAM 15 MG CAP PO PRN (18:28)
[2018-05-10] MEDS ORDERED: METOCLOPRAMIDE 10 MG/2 ML VIAL IVP PRN (18:28)
[2018-05-10] MEDS ORDERED: CYCLOBENZAPRINE 10 MG TAB PO PRN (18:28)
[2018-05-10] MEDS ORDERED: ONDANSETRON DISINTEGRATING 4 MG TAB PO PRN (18:28)
[2018-05-10] MEDS ORDERED: BISACODYL 10 MG SUPP PR PRN (18:28)
[2018-05-10] MEDS ORDERED: ONDANSETRON 4 MG/2 ML VIAL IVP PRN (18:28)
[2018-05-10] MEDS ORDERED: POLYETHYLENE GLYCOL 3350 17 GM PKT PO PRN (18:28)
[2018-05-10] MEDS ORDERED: TAPENTADOL HCL 50 MG TAB PO PRN (18:28)
[2018-05-10] MEDS ORDERED: DIPHENOXYLATE/ATROPINE LOMOTIL 1 TAB PO PRN (18:28)
[2018-05-10] MEDS ORDERED: MAGNESIUM HYDROXIDE 30 ML UDCUP PO PRN (18:28)
[2018-05-10] MEDS ORDERED: PROMETHAZINE HCL 25 MG/ML INJ IVP PRN (18:28)
--- NOTE | 2018-05-10 18:28 | POSTOPPROG ---
Post Op Note Date of Operation: 05/10/18 Surgeon: Peggy Burns Wood And Hardware Outfitter: coltrain Anesthesia: LMA Pre-op Diagnosis: r gina instability Procedure: r gina revision with fluoro Inf/Abcess present in the surg proc area at time of surgery?: No Depth: Deep Incisional (Fascial) EBL: 100-500
[2018-05-10] MEDS ORDERED: LR 1,000 ML IV SCH (18:30)
[2018-05-10] MEDS ORDERED: NALOXONE HCL 0.4 MG/ML INJ IVP PRN (18:51)
[2018-05-10] MEDS: hydrALAZINE 20 MG/ML VIAL IVP PRN ×2 (18:52→19:02)
--- NOTE | 2018-05-10 18:53 | POSTANESTH ---
Post Anesthetic Evaluation Cardiovascular Status: Tx Hyper/Hypo-tension Respiratory Status: Normal, Stable Level of Consciousness/Mental Status: Can Participate in Eval Pain Control: Adequate, Prn Tx Ordered Nausea/Vomiting Control: Adequate, Prn Tx Ordered Complications Possibly Related to Anesthesia: None Noted
[2018-05-10] MEDS: fentaNYL 100 MCG/2 ML INJ IVP PRN ×3 (19:07→19:33)
[2018-05-10] MEDS ORDERED: SOLIFENACIN SUCCINATE 5 MG TAB PO SCH (21:00)
[2018-05-10] MEDS ORDERED: PRIMIDONE 50 MG TAB PO SCH (21:00)
[2018-05-10] MEDS ORDERED: DOXAZOSIN MESYLATE 4 MG TAB PO SCH (21:00)
[2018-05-10] MEDS ORDERED: ATORVASTATIN CALCIUM 40 MG TAB PO SCH (21:00)
[2018-05-10] MEDS ORDERED: PRIMIDONE 250 MG TAB PO SCH (21:00)
[2018-05-10] MEDS: BRIMONIDINE/TIMOLOL 5 ML OPHT.BTL EACHEYE SCH (22:38)
[2018-05-10] MEDS: FAMOTIDINE 20 MG TAB PO SCH (22:38)
[2018-05-10] MEDS: DABIGATRAN ETEXILATE MESYL 150 MG CAP PO SCH (22:40)
[2018-05-10] MEDS: SENNOSIDES/DOCUSATE SODIUM TAB PO SCH (22:45)
[2018-05-11] MEDS: ceFAZolin 2 GM/DEXTROSE 100 ML IV SCH ×2 (00:48→09:22)
[2018-05-11] MEDS: traMADol 50 MG TAB PO SCH ×3 (00:49→12:48)
[2018-05-11] MEDS: ACETAMINOPHEN 325 MG TAB PO SCH ×3 (00:49→12:48)
[2018-05-11] MEDS: KETOROLAC 15 MG/1 ML SDV IVP SCH ×3 (00:49→12:48)
--- NOTE | 2018-05-11 06:01 | GOP ---
DATE OF OPERATION: 05/10/2018 SURGEON: Peggy Burns MD PRESSER HAND: SALENA Castillo, LSA, whose presence was medically necessary. ANESTHESIA: LMA. PREOPERATIVE DIAGNOSIS: Right total hip arthroplasty instability. POSTOPERATIVE DIAGNOSIS: Right total hip arthroplasty instability. PROCEDURE PERFORMED: Right total hip arthroplasty revision with fluoroscopy. FINDINGS: INDICATIONS: This is a 72-year-old male who had previously undergone a total hip arthroplasty approx imately 2 years ago, had been doing well with no instability at all when he developed a ganglion on t he anterior part of his capsule that was causing him pain on his iliopsoas. One month ago he had the cyst excised as well as scar tissue on the anterior portion of the capsule. Since then he has had t wo episodes of instability with gross dislocation both times and had to be taken to the emergency nahed m and put back in. Due to this, it was decided to do a revision in order to gain further stability i nto the hip. DESCRIPTION OF PROCEDURE: The patient was brought to the operating room after the right side had bee n identified as the correct side by the patient, nurse and position. Once in the operating room, he was placed under general anesthesia using an LMA. Once asleep, he was placed supine on the fracture table with a well-padded perineal post and both legs placed in appropriate leg hernandez. Fluoroscopy w as used to ensure proper positioning of the pelvis. Once in the proper position, the arch table was locked into place. The right hip and flank were then sterilely prepped and draped in the usual fashi on using GSI solution. Once prepped and draped, incision was made directly over the old scar and wit h sharp dissection carried down through the skin and subcutaneous layers. The fascia overlying the T FL was identified and incised in line with its fibers over the old sutures that were able to be found . Blunt dissection was then carried down onto the hip joint itself. The hip was able to be moved alonso bluxed by a bone hook with gentle traction placed on the leg, I was able to grossly dislocate the leg . The leg was then placed in 50 degrees of external rotation and a bone tamp and a mallet were used to remove the head. Once it was removed, a new trial +10 head was placed onto the exposed neck. It was re-reduced in order to have excellent stability across the area and good positioning on x-ray; th erefore, the hip was re-dislocated, the trial was removed, the acetabular liner was able to be remove d using an osteotome, and a 10 degree lipped polyethylene insert was placed within the acetabulum suc h that the lip was anteriorly in order to block any anterior subluxation of the head. Once properly in position, the neck was washed and cleaned on the trunnion and then a 36 + 10 femoral head was put into place and noted to fit securely with a mallet, was engaged in a mallet creating a cold weld on baylee marie neck. The hip was then relocated. Attempts were made to try and dislocate or sublux the hip both anteriorly and laterally with no avail and x-ray exam revealed excellent leg length; therefore, the wound was thoroughly irrigated with antibiotic solution and was injected with joint cocktail around t frank acetabulum and into the musculature around the hip. The wound was thoroughly irrigated with trane xamic acid, and the wound was then closed in layers to include #2 PDO suture in a running whip stitch through the fascial layer overlying the TFL, 0 Vicryl and 2-0 Vicryl suture for the subcutaneous lay ers and a 3-0 V-Loc suture in a running subcuticular stitch for the skin. 30 cc of Marcaine was infu sed around the actual incision itself. The wound was then dressed with Steri-Strips, Xeroform, 4 x 4 , and Tegaderm. The patient was completely undraped in the operating room and his feet taken out of their leg holders. Perineal post was removed. The leg lengths were noted to be nearly equal. He wa s woken up, extubated, transferred onto a stretcher, and sent to the recovery room in good condition. /[id number]/MODL
--- NOTE | 2018-05-11 08:51 | PDMN ---
Medical Necessity Medical necessity: [facility] IP only surgery; CPT 87014 Revision ANNABEL
[2018-05-11] MEDS ORDERED: PRIMIDONE 50 MG TAB PO SCH (09:00)
[2018-05-11] MEDS ORDERED: PANTOPRAZOLE SODIUM 40 MG TAB PO SCH (09:00)
[2018-05-11] MEDS: SENNOSIDES/DOCUSATE SODIUM TAB PO SCH (09:21)
[2018-05-11] MEDS: FAMOTIDINE 20 MG TAB PO SCH (09:22)
[2018-05-11] MEDS: DABIGATRAN ETEXILATE MESYL 150 MG CAP PO SCH (09:22)
[2018-05-11] MEDS: BRIMONIDINE/TIMOLOL 5 ML OPHT.BTL EACHEYE SCH (09:27)
--- NOTE | 2018-05-11 12:55 | SOAPPROG ---
SOAP Progress Note Assessment/Plan: Assessment: Pt is POD#1 s/p Plan: Change dressing to water proof dressing prior to discharge. Plan for discharge today. 05/11/18 12:55 Objective: Vital Signs Temp Pulse Resp BP Pulse Ox 36.6 C 59 L 14 126/75 H 94 05/11/18 08:00 05/11/18 08:00 05/11/18 08:00 05/11/18 08:00 05/11/18 08:00 Laboratory Results 05/11/18 04:26 05/10/18 05/11/18 05/12/18 05:59 05:59 05:59 Intake Total 2700 Output Total 250 Balance 2450 ICD10 Worksheet Patient Problems: Problems Problem Status Onset Arthritis of knee, left Acute Dislocation of hip, right, closed Acute
[2018-05-11 12:58] VITALS: BP 126/74
--- NOTE | 2018-05-11 17:23 | ASMTLACE ---
FLIPE Length of stay for Answers: 1 day current admission Acuity / Level of Answers: Yes Care: Did the patient have an inpatient admission? Comorbidities - select Answers: Opioid dependence all that apply / Chronic pain Other Notes: AFib # of Emergency department Answers: 1-2 visits in the last 6 months Score: 10 Date Signed: 05/11/2018 05:22 PM Electronically Signed By:Cristela Perdomo RN
--- NOTE | 2018-05-11 17:24 | ASMTCMCOM ---
CM Note CM Note Notes: Met with patient and re: d/c plan. Patient states they [place] home - no concerns for safety there. He will follow-up with outpatient PT next week. No needs identified. Plan: Independent Date Signed: 05/11/2018 05:23 PM Electronically Signed By:Cristela Perdomo RN
== END 2018-05-11 14:54 | disposition home or self-care (01) | DRG 468 ==
LOC: F3E 14:36 → OBSVTOIN 18:30 → F3N 19:59
PROVIDERS: ADMIT Orthopaedic Surgery; ATTEND Orthopaedic Surgery
DX: T84.020A Dislocation of internal right hip prosthesis, initial encounter (principal); E78.5 Hyperlipidemia, unspecified; K21.9 Gastro-esophageal reflux disease without esophagitis; I10 Essential (primary) hypertension; I48.91 Unspecified atrial fibrillation; I25.10 Atherosclerotic heart disease of native coronary artery without angina pectoris; G47.33 Obstructive sleep apnea (adult) (pediatric); G25.0 Essential tremor; Z96.653 Presence of artificial knee joint, bilateral; Z79.01 Long term (current) use of anticoagulants
CPT/HCPCS: 97161-GP; 97165-GO; G8978-GP-CI; G8979-GP-CI; G8980-GP-CI; G8987-GO-CI; G8988-GO-CI; G8989-GO-CI; J0171; J0690; J1885; J2270; J2795

== ENCOUNTER 2018-08-03 10:28 | Day surgery (SDC) | payer OTHER, MEDICARE ==
[2018-08-03] MEDS ORDERED: MIDAZOLAM 2 MG/2 ML VIAL IVP ONE (10:34)
[2018-08-03] MEDS ORDERED: ATROPINE SULFATE 1 MG/10 ML SYR IVP ONE (10:34)
[2018-08-03] MEDS ORDERED: fentaNYL 100 MCG/2 ML INJ IVP ONE (10:34)
[2018-08-03] MEDS ORDERED: BENZOCAINE UNIT DOSE SPRAY HURRICAINE MM ONE (10:34)
[2018-08-03] MEDS ORDERED: NS 500 ML IV ONE (10:34)
[2018-08-03 11:35] LABS: INR 1.23 (0.83-1.16); PROTIME(PATIENT) 15.7 SEC (12.0-15.0)
--- NOTE | 2018-08-03 11:54 | PDANEPAE ---
ANE History of Present Illness a. fib/flutter for LAMAR/CV ANE Past Medical History - Cardiovascular History Hx Hypertension: Yes Hx Arrhythmias: Yes Hx Chest Pain: No Hx Coronary Artery / Peripheral Vascular Disease: Yes Hx CHF / Valvular Disease: No Hx Palpitations: No Cardiovascular History Comment: afib. CAD. hyperlipidemia. hx of multiple cardioversions. loop recorder placed. hx of syncope. followed by [facility] - Pulmonary History Hx COPD: No Hx Asthma/Reactive Airway Disease: No Hx Recent Upper Respiratory Infection: No Hx Oxygen in Use at Home: No Hx Sleep Apnea: No Pulmonary History Comment: stephanie positive - Neurologic History Hx Cerebrovascular Accident: No Hx Seizures: No Hx Dementia: No Neurologic History Comment: ESSENTIAL TREMOR - Endocrine History Hx Diabetes: No - Renal History Hx Renal Disorders: Yes Renal History Comment: BPH. 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 ESOPHAGEAL DILATION 2008 - Other Health History Other Health History: ARTHRITIS. SEASONAL ALLERGIES. GLAUCOMA. wears reading glasses. wears bilateral hearing aides- will not bring to hospital - Chronic Pain History Chronic Pain: Yes (right hip) - Surgical History Prior Surgeries: 04/28/18 urolift with [facility] in office. 04/04/18 excision of cyst intracapusular hip joint with [facility]. cardioversion 02/03/18, 09/30/17, 04/12, 08/07/14, 07/17/14. 12/16/2015 LOOP MONITOR PLACEMENT. ANGIOPLASTY. right ANNABEL with. [facility]. 10/23/13 left TKA with [facility]. RT TOTAL KNEE 2006. LANA REMVL CATARACT. TURP 1994. RT EYE STRABISMUS. TONSILLECTOMY. RT KNEE SCOPE X 2. LT KNEE SCOPE. LANA HEEL RELEASE OF FASCIA ANE Review of Systems Review of systems is: negative Review of Systems: - Exercise capacity Exercise capacity: >=4 METS - Pacemaker Date Pacemaker Last Checked: 03/08/18 ANE Patient History - Allergies Allergies/Adverse Reactions: No Known Allergies Allergy (Verified 05/09/18 16:34) - Home Medications Home medications: home medication list seen and reviewed Home Medications: Pantoprazole Sodium [Protonix 40mg (*)] 40 mg PO DAILY 10/18/13 [Last Taken 08:30] Primidone [Primidone 250mg (*)] 250 mg PO HS 10/18/13 [Last Taken 05/09/18] Brimonidine/Timolol [Combigan (*)] 1 drops EACHEYE BID 04/29/16 [Last Taken 08:30] Cyanocobalamin [Vitamin B12 (*)] 1,000 mcg PO DAILY 04/29/16 [Last Taken ] Multivitamins [Multivitamin (*)] 1 each PO DAILY 04/29/16 [Last Taken 05/09/18] Calcium Carbonate [Oyster Shell Calcium 500 mg (*)] 500 mg PO DAILY #0 10/04/16 [Last Taken 05/09/18] Acetaminophen [Tylenol 325mg (*)] 650 mg PO Q6HRS PRN 05/09/18 [Last Taken 05/09] Acetaminophen/Diphenhydramine [Tylenol Pm Ex-Strength Caplet] 25 - 500 mg PO HS 08/03/18 [Last Taken Unknown] Aspirin EC [Aspirin EC 81 mg (*)] 81 mg PO DAILY 08/03/18 [Last Taken 08/03/18] Atorvastatin Calcium 20 mg PO DAILY 08/03/18 [Last Taken Unknown] Coq-10 PO DAILY 08/03/18 [Last Taken 08/03/18] DILTIAZEM HCL 120 mg PO DAILY 08/03/18 [Last Taken 08/03/18] Dabigatran Etexilate Mesyl [Pradaxa 150 MG (*)] 150 mg PO BID 08/03/18 [Last Taken 08/03/18] Glucosamine HCl 500 mg PO DAILY 08/03/18 [Last Taken Unknown] Propafenone HCl [Propafenone HCl ER] 225 mg PO BID 08/03/18 [Last Taken Unknown] - Anes Hx Anes Hx: no prior problems - Smoking Hx Smoking Status: Never smoked - Family Anes Hx Family Hx Anesthesia Complications: none ANE Labs/Vital Signs - Labs Result Diagrams: 08/03/18 11:00 - Vital Signs Height: 182.88 cm Weight: 108.862 kg ANE Physical Exam - Airway Neck exam: FROM Mallampati Score: Class 2 Mouth exam: normal dental/mouth exam - Pulmonary Pulmonary: no respiratory distress - Cardiovascular Cardiovascular: irregularly irregular - ASA Status ASA Status: III ANE Anesthesia Plan Anesthesia Plan: GA with mask
--- NOTE | 2018-08-03 11:54 | POSTANESTH ---
Post Anesthetic Evaluation Cardiovascular Status: Normal, Stable Respiratory Status: Normal, Stable Level of Consciousness/Mental Status: Can Participate in Eval, Moderately Sleepy Pain Control: Adequate, Prn Tx Ordered Nausea/Vomiting Control: Adequate, Prn Tx Ordered Complications Possibly Related to Anesthesia: None Noted
[2018-08-03] MEDS ORDERED: PROPOFOL 200 MG/20 ML VIAL ONE (12:01)
--- NOTE | 2018-08-03 12:38 | PDTEE1 ---
LAMAR Cardioversion Procedure Procedure: electrical cardioversion, transesophageal echo Indications: atrial fibrillation Consent: signed and in chart Anticoagulation: other (Pradaxa) Procedural Details: After consents for anesthesia, LAMAR, and possible cardioversion were signed and placed in the chart, the patient was positioned on the left lateral side and "time out" was performed. Sedation was induced by anesthesia without difficulty , and LAMAR probe was placed with standard views obtained. Preliminary report (1) Normal LVEF with normal wall motion (2) Biatrial dilation was noted (mild to moderate) (3) Mild "smoke" was noted to the Left atrium (4) No thrombus or clot was noted to the left atrial appendage (the wave form was >80) (5) There was an echodensity noted to the ostium of the JEFF, with good visualization of this finding noted. This appears to be a webbing with clear attachment to the ostium of the LA appendage (6) Mild to moderate mitral regurgitation was noted through grossly normal valve (7) Trileaflet aortic valve without sclerosis or appreciable insufficiency (8) Grossly normal tricuspid valve with physiologic insufficiency (9) Grossly normal pulmonic valve without appreciable insufficiency noted (10) No significant atheroma to the descending or transverse aorta Synchronized cardioversion attempt #1: 200J Results: normal sinus rhythm (sinus bradycardia) Conclusions: successful LAMAR cardioversion Conclusion Comment: Would maintain scheduled appointment with EP in August. Should heart rates continue to be suppressed to low 40's, would consider cessation of the CCB therapy, with continued use of the Propafenone therapy. Continue Pradaxa therapy for minimum of one month (likely for life). Patient Problems: Problems Problem Status Onset Arthritis of knee, left Acute Dislocation of hip, right, closed Acute
--- NOTE | 2018-08-03 17:51 | ECHO ---
[email or web address] [place] [id number] Main: [phone] Fax: Transesophageal Echocardiography Name: PRINCE PORTILLO MR#: [id number] Study Date: 08/03/2018 Study Time: 12:00 PM Date of : 1945 Age: 73 year(s) Height: ( ) Weight: ( ) BSA: Gender: Male Examination: LAMAR Indication: Pre Cardioversion Image Quality: Contrast: Requested by: Manny Gonzalez Heart Rate: Rhythm: BP: / Procedure Staff Facing Baster: Jamie Dallas RDCS Reading Physician: Manny Gonzalez MD Requesting Provider: LAMAR Exam Details Conclusions: Normal size left ventricle. Good color flow doppler in the left atrial appendage. No thrombus in left appendage. The mitral valve is normal in appearance. Mild to moderate mitral regurgitation. The aortic valve is tri-leaflet and functions normally. The tricuspid valve is normal in appearance and function. The pulmonic valve is normal in appearance and function. The aorta is normal. No pericardial effusion. Proceeded with successful elective DC cardioversion.. Measurements: Chambers Valvular Assessment AV/MV Valvular Assessment TV/PV Normal Normal Normal Name Value Range Name Value Range Name Value Range Additional Measurements: Findings: Left Ventricle: Normal size left ventricle. Left Atrial Appendage: Patient: PRINCE PORTILLO Study Date: 08/03/2018 Page 1 of 2 12:00 PM Good color flow doppler in the left atrial appendage. No thrombus in left appendage. Mitral Valve: The mitral valve is normal in appearance. Mild to moderate mitral regurgitation. Aortic Valve: The aortic valve is tri-leaflet and functions normally. Tricuspid Valve: The tricuspid valve is normal in appearance and function. Pulmonic Valve: The pulmonic valve is normal in appearance and function. Aorta: The aorta is normal. Pericardium: No pericardial effusion. Exam Comments: Proceeded with successful elective DC cardioversion.. l1n (No Signature Object) Patient: PRINCE PORTILLO Study Date: 08/03/2018 Page 2 of 2 12:00 PM [id number]
== END 2018-08-03 14:40 | disposition home or self-care (01) ==
LOC: FCATH 10:28
PROVIDERS: ATTEND Internal Medicine Cardiovascular Disease
DX: I48.0 Paroxysmal atrial fibrillation (principal); I34.0 Nonrheumatic mitral (valve) insufficiency; I51.7 Cardiomegaly; I25.10 Atherosclerotic heart disease of native coronary artery without angina pectoris; E66.9 Obesity, unspecified; Z68.32 Body mass index [BMI] 32.0-32.9, adult; K21.9 Gastro-esophageal reflux disease without esophagitis; I10 Essential (primary) hypertension; E78.5 Hyperlipidemia, unspecified; G47.33 Obstructive sleep apnea (adult) (pediatric); N40.1 Benign prostatic hyperplasia with lower urinary tract symptoms; R73.03 Prediabetes; G25.0 Essential tremor; Z79.01 Long term (current) use of anticoagulants; Z79.82 Long term (current) use of aspirin; Z96.653 Presence of artificial knee joint, bilateral; Z96.641 Presence of right artificial hip joint
CPT/HCPCS: J2704

== ENCOUNTER → 2018-10-25 | Outpatient (CLI) | payer OTHER, MEDICARE | DX: I48.91 Unspecified atrial fibrillation (principal); Z79.899 Other long term (current) drug therapy ==

== ENCOUNTER 2018-11-16 08:59 | Day surgery (SDC) | payer OTHER, MEDICARE ==
[2018-11-16] MEDS ORDERED: MIDAZOLAM 2 MG/2 ML VIAL IVP ONE (09:13)
[2018-11-16] MEDS ORDERED: ATROPINE SULFATE 1 MG/10 ML SYR IVP ONE (09:13)
[2018-11-16] MEDS ORDERED: NS 500 ML IV ONE (09:13)
[2018-11-16] MEDS ORDERED: fentaNYL 100 MCG/2 ML INJ IVP ONE (09:13)
[2018-11-16 10:04] LABS: INR 1.16 (0.83-1.16); PROTIME(PATIENT) 14.3 SEC (12.0-15.0)
--- NOTE | 2018-11-16 10:24 | PDANEPAE ---
ANE History of Present Illness a fib aflutter ANE Past Medical History - Cardiovascular History Hx Hypertension: Yes Hx Arrhythmias: Yes Hx Chest Pain: No Hx Coronary Artery / Peripheral Vascular Disease: Yes Hx CHF / Valvular Disease: No Hx Palpitations: No Cardiovascular History Comment: afib. CAD. hyperlipidemia. hx of multiple cardioversions. loop recorder placed. hx of syncope. followed by [facility] - Pulmonary History Hx COPD: No Hx Asthma/Reactive Airway Disease: No Hx Recent Upper Respiratory Infection: No Hx Oxygen in Use at Home: No Hx Sleep Apnea: No Pulmonary History Comment: stephanie positive - Neurologic History Hx Cerebrovascular Accident: No Hx Seizures: No Hx Dementia: No Neurologic History Comment: ESSENTIAL TREMOR - Endocrine History Hx Diabetes: Yes Hypothyroid: No Hyperthyroid: No Obesity: yes, mild Endocrine History Comment: pre DM - Renal History Hx Renal Disorders: Yes Renal History Comment: BPH. 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 ESOPHAGEAL DILATION 2008 - Other Health History Other Health History: ARTHRITIS. SEASONAL ALLERGIES. GLAUCOMA. wears reading glasses. wears bilateral hearing aides- will not bring to hospital - Chronic Pain History Chronic Pain: Yes (right hip) - Surgical History Prior Surgeries: 04/28/18 urolift with Kimberly in office. 04/04/18 excision of cyst intracapusular hip joint with [facility]. cardioversion 02/03/18, 09/30/17, 04/12, 08/07/14, 07/17/14. 12/16/2015 LOOP MONITOR PLACEMENT. ANGIOPLASTY. right ANNABEL with. [facility]. 10/23/13 left TKA with [facility]. RT TOTAL KNEE 2006. LANA REMVL CATARACT. TURP 1994. RT EYE STRABISMUS. TONSILLECTOMY. RT KNEE SCOPE X 2. LT KNEE SCOPE. LANA HEEL RELEASE OF FASCIA ANE Review of Systems Review of systems is: negative Review of Systems: - Pacemaker Date Pacemaker Last Checked: 03/08/18 ANE Patient History - Allergies Allergies/Adverse Reactions: No Known Allergies Allergy (Verified 05/09/18 16:34) - Home Medications Home medications: home medication list seen and reviewed Home Medications: Pantoprazole Sodium [Protonix 40mg (*)] 40 mg PO DAILY 10/18/13 [Last Taken 08:30] Primidone [Primidone 250mg (*)] 250 mg PO HS 10/18/13 [Last Taken 05/09/18] Brimonidine/Timolol [Combigan (*)] 1 drops EACHEYE BID 04/29/16 [Last Taken 08:30] Cyanocobalamin [Vitamin B12 (*)] 1,000 mcg PO DAILY 04/29/16 [Last Taken ] Multivitamins [Multivitamin (*)] 1 each PO DAILY 04/29/16 [Last Taken 05/09/18] Calcium Carbonate [Oyster Shell Calcium 500 mg (*)] 500 mg PO DAILY #0 10/04/16 [Last Taken 05/09/18] Acetaminophen [Tylenol 325mg (*)] 650 mg PO Q6HRS PRN 05/09/18 [Last Taken 05/09] Acetaminophen/Diphenhydramine [Tylenol Pm Ex-Strength Caplet] 25 - 500 mg PO HS 08/03/18 [Last Taken Unknown] Aspirin EC [Aspirin EC 81 mg (*)] 81 mg PO DAILY 08/03/18 [Last Taken 08/03/18] Atorvastatin Calcium 20 mg PO DAILY 08/03/18 [Last Taken Unknown] Coq-10 PO DAILY 08/03/18 [Last Taken 08/03/18] Dabigatran Etexilate Mesyl [Pradaxa 150 MG (*)] 150 mg PO BID 08/03/18 [Last Taken 08/03/18] Glucosamine HCl 500 mg PO DAILY 08/03/18 [Last Taken Unknown] Propafenone HCl [Propafenone HCl ER] 225 mg PO BID 08/03/18 [Last Taken 07:00] - NPO status NPO Status: no food or drink >8 hours - Anes Hx Anes Hx: no prior problems - Smoking Hx Smoking Status: Never smoked - Family Anes Hx Family Anes Hx: none Family Hx Anesthesia Complications: none ANE Labs/Vital Signs - Labs Result Diagrams: 11/16/18 09:50 - Vital Signs Height: 183 cm Weight: 108.9 kg ANE Physical Exam - Airway Neck exam: FROM Mallampati Score: Class 2 Mouth exam: normal dental/mouth exam - Pulmonary Pulmonary: no respiratory distress, clear to auscultation - Cardiovascular Cardiovascular: regular rate and rhythym, no murmur, rub, or gallop - ASA Status ASA Status: IV ANE Anesthesia Plan Anesthesia Plan: GA with mask Total IV Anesthesia: Yes
[2018-11-16] MEDS ORDERED: PROPOFOL/EMULSION 500 MG/50 ML BOTTLE IV ONE (10:30)
--- NOTE | 2018-11-16 10:42 | PDGENHP ---
History & Physical Chief Complaint: atrial flutter History of Present Illness: h/o atrial flutrter with multiple cv..pt on chronic anti coagulation...understands the risks wants to proceed Relevant Physical Exam: normal heart tones ..clear lungs..no edema Cardiorespiratory Assessment: 1. per anesthisia
[2018-11-16] MEDS ORDERED: NALOXONE HCL 0.4 MG/ML INJ IVP PRN (10:53)
--- NOTE | 2018-11-16 10:57 | PDCARD ---
Cardioversion Procedure Procedure: electrical cardioversion Indications: other (atrial tachycardia) Consent: signed and in chart Anticoagulation: other (pradaxa) Procedural Details: Pads were placed in anterior-posterior position. Synchronized cardioversion attempt #1: 100J Results: normal sinus rhythm Conclusions: successful cardioversion (1. continue home meds..pt has f/u scheduled next week with dr rowan) Patient Problems: Problems Problem Status Onset Arthritis of knee, left Acute Dislocation of hip, right, closed Acute
== END 2018-11-16 12:29 | disposition home or self-care (01) ==
LOC: FCATH 08:59
PROVIDERS: ATTEND Internal Medicine Cardiovascular Disease
PROC: 5A2204Z Restoration of Cardiac Rhythm, Single (ICD-10-PCS; principal; 2018-11-16)
DX: I48.92 Unspecified atrial flutter (principal); Z79.01 Long term (current) use of anticoagulants; I25.10 Atherosclerotic heart disease of native coronary artery without angina pectoris; I10 Essential (primary) hypertension; K21.9 Gastro-esophageal reflux disease without esophagitis; G47.33 Obstructive sleep apnea (adult) (pediatric); G25.0 Essential tremor; R73.03 Prediabetes; N40.1 Benign prostatic hyperplasia with lower urinary tract symptoms; R35.1 Nocturia; H91.93 Unspecified hearing loss, bilateral
CPT/HCPCS: J2704